=== PATIENT | male | born 1955 | race Caucasian/White ===

== ENCOUNTER 2024-02-18 08:47 | Emergency (ER) | payer OTHER, SELFPAY ==
[2024-02-18 08:48] VITALS: BP 149/97; PULSE 75; RESP 16; TEMP 36.4; O2SAT 96; BMI 26.3
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
[2024-02-18] MEDS: Lidocaine/Epi/Tetracaine 50 ML 1 APPLIC TOPICAL (09:17)
[2024-02-18] MEDS: Lidocaine 1% (20 ml mdv) 20 ML Vial INFILT (09:17)
[2024-02-18 09:45] VITALS: BP 144/96; PULSE 65; RESP 14
[2024-02-18 10:00] VITALS: BP 153/88; PULSE 56; RESP 16; TEMP 36.7; O2SAT 98
[2024-02-18 11:00] VITALS: BP 153/85; PULSE 65; RESP 17; TEMP 37; O2SAT 98
== END 2024-02-18 11:06 | disposition home or self-care (01) ==
PROVIDERS: Emergency Provider Emergency Medicine; Visit Provider Emergency Medicine
DX: S01.312A Laceration without foreign body of left ear, initial encounter (principal); F17.200 Nicotine dependence, unspecified, uncomplicated; Y00.XXXA Assault by blunt object, initial encounter
CPT/HCPCS: 12013; 70450; 73110; 99283